=== PATIENT | female | born 1950 | race Caucasian/White ===

== ENCOUNTER 2025-02-16 16:59 | Emergency (ER) | payer MEDICARE, OTHER ==
[~2025-02-16] VITALS: Ht 162.6 cm; Wt 63.5 kg
[2025-02-16 17:43] LABS: BASOPHILS # (AUTO) 0.1 K/uL (0.0-0.2); BASOPHILS % (AUTO) 1.4 % (0.0-2.0); EOSINOPHILS # (AUTO) 0.1 K/uL (0.0-0.7); EOSINOPHILS % (AUTO) 1.4 % (0.0-6.0); HEMATOCRIT 34 % (33-45); HEMOGLOBIN 11.3 g/dL (11.5-14.8); LYMPHOCYTES # (AUTO) 1.7 K/uL (0.8-4.8); LYMPHOCYTES % (AUTO) 21.7 % (20.0-44.0); MEAN CORPUSCULAR HEMOGLOBIN 29 PG (26.0-33.0); MEAN CORPUSCULAR HGB CONC 33 g/dl (31.0-36.0); MEAN CORPUSCULAR VOLUME 88 fL (82-100); MONOCYTES # (AUTO) 0.9 K/uL (0.1-1.30); MONOCYTES % (AUTO) 11.1 % (2.0-12.0); NEUTROPHILS # (AUTO) 5.2 K/uL (1.8-8.9); NEUTROPHILS % (AUTO) 64.4 % (43.0-81.0); PLATELET COUNT (AUTO) 401 K/uL (150-450); RED BLOOD CELL COUNT(AUTO) 3.88 MIL/uL (4.0-5.2); RED CELL DISTRIBUTION WIDTH 13.4 % (11.5-15.0)
[2025-02-16 17:48] LABS: CALCIUM, SERUM 9.1 mg/dL (8.5-10.1); CARBON DIOXIDE 23 mmol/L (21-32); CHLORIDE 108 mmol/L (98-107); CREATININE 1.8 mg/dL (0.6-1.3); GLUCOSE 104 mg/dL (74-106); POTASSIUM 3.8 mmol/L (3.5-5.1); SODIUM SERUM 141 mmol/L (136-145); UREA NITROGEN, BLOOD 26 mg/dL (7-18)
[2025-02-16 17:55] LABS: ALANINE AMINOTRANSFERASE 7 U/L (12-78); ALBUMIN 3.5 g/dL (3.4-5.0); ALKALINE PHOSPHATASE 81 U/L (46-116); ASPARTATE AMINOTRANSFERASE 15 U/L (15-37); BILIRUBIN,DIRECT 0.1 mg/dL (0.0-0.2); BILIRUBIN,TOTAL 0.3 mg/dL (0.2-1.0); LIPASE 54 U/L (16-77); TOTAL PROTEIN, SERUM 7.9 g/dL (6.4-8.2)
[2025-02-16 18:06] LABS: APPEARANCE,URINE CLEAR (CLEAR); BILIRUBIN,URINE NEGATIVE (NEGATIVE); BLOOD, URINE NEGATIVE Ery/uL (NEGATIVE); COLOR,URINE YELLOW (YELLOW); KETONES,URINE NEGATIVE (NEGATIVE); LEUKOCYTE ESTERASE ,URINE NEGATIVE (NEGATIVE); NITRITE, URINE NEGATIVE (NEGATIVE); PROTEIN,URINE 1+ mg/dl (NEGATIVE); UGLUCOSE NEGATIVE (NEGATIVE); UROBILINOGEN,URINE 0.2 EU/dL (0.2)
[2025-02-16 18:11] LABS: ADD URINE CULTURE NO; BACTERIA,URINE Few /HPF (None Seen); SQUAMOUS EPITHELIAL CELL,UR Few /HPF (None Seen)
[2025-02-16] MEDS ORDERED: ONDANSETRON HCL/PF 4 MG/2 ML VIAL ONE (18:15)
[2025-02-16] MEDS ORDERED: MORPHINE SULFATE INJ 2 MG/ML DISP.SYRIN ONE (18:16)
[2025-02-16] MEDS: IV NS 0.9% 1,000 ML BAG IV ONE (18:20)
[2025-02-16] MEDS: ONDANSETRON HCL/PF 4 MG/2 ML VIAL IVP ONE (18:22)
[2025-02-16] MEDS: MORPHINE SULFATE INJ 2 MG/ML DISP.SYRIN IV ONE (18:22)
[2025-02-16] MEDS ORDERED: ASPI-1420 PO (19:20)
[2025-02-16] MEDS ORDERED: HYDR-4077 PO (19:20)
[2025-02-16] MEDS ORDERED: MELA5TAB PO (19:20)
[2025-02-16] MEDS ORDERED: NA P133E RC (19:20)
[2025-02-16] MEDS ORDERED: BISA10SU11 RC (19:20)
[2025-02-16] MEDS ORDERED: ATOR40TA PO (19:20)
[2025-02-16] MEDS ORDERED: FAMO20TA29 PO (19:20)
[2025-02-16] MEDS ORDERED: NIFE90TA61 PO (19:20)
[2025-02-16] MEDS ORDERED: ACET325T53 PO (19:20)
[2025-02-16] MEDS ORDERED: MAGN400O6 PO (19:20)
[2025-02-16] MEDS ORDERED: ONDA-97 PO (19:20)
[2025-02-16] MEDS ORDERED: ESCI5TAB PO (19:20)
[2025-02-16] MEDS ORDERED: CILO100T PO (19:20)
[2025-02-16] MEDS ORDERED: DOCU100C36 PO (19:20)
[2025-02-16] MEDS ORDERED: MELO-105 PO (19:20)
[2025-02-16 20:30] VITALS: TEMP 98.4; O2SAT 96
[2025-02-16] MEDS ORDERED: hydrALAZINE HCL 50 MG TABLET ONE (20:40)
[2025-02-16 20:42] VITALS: BP 193/79
[2025-02-16] MEDS: hydrALAZINE HCL 25 MG TABLET PO ONE (20:42)
== END 2025-02-16 20:32 | disposition home or self-care (01) ==
LOC: ER 17:10
DX: I10 Essential (primary) hypertension (principal); R10.30 Lower abdominal pain, unspecified; I25.10 Atherosclerotic heart disease of native coronary artery without angina pectoris; Z79.02 Long term (current) use of antithrombotics/antiplatelets; Z79.1 Long term (current) use of non-steroidal anti-inflammatories (NSAID); Z79.82 Long term (current) use of aspirin; Z79.899 Other long term (current) drug therapy; Z86.73 Personal history of transient ischemic attack (TIA), and cerebral infarction without residual deficits
CPT/HCPCS: 99285; 74176; 96360; 71045; 93005; 85025; 80048; 83690; 80076; 81001; 36415; J7030; J2270; J2405

== ENCOUNTER 2025-02-18 20:47 | Emergency (ER) | payer MEDICARE, OTHER ==
[~2025-02-18] VITALS: Ht 154.9 cm; Wt 48.5 kg
[~2025-02-18 20:47] MED LIST: ACET325T53 PO; ASPI-1420 PO; ATOR40TA PO; BISA10SU11 RC; CILO100T PO; DOCU100C36 PO; ESCI5TAB PO; FAMO20TA29 PO; HYDR-4077 PO; MAGN400O6 PO; MELA5TAB PO; MELO-105 PO; NA P133E RC; NIFE90TA61 PO; ONDA-97 PO
[2025-02-18 21:49] LABS: APPEARANCE,URINE CLEAR (CLEAR); BILIRUBIN,URINE NEGATIVE (NEGATIVE); BLOOD, URINE NEGATIVE Ery/uL (NEGATIVE); COLOR,URINE YELLOW (YELLOW); KETONES,URINE NEGATIVE (NEGATIVE); LEUKOCYTE ESTERASE ,URINE NEGATIVE (NEGATIVE); NITRITE, URINE NEGATIVE (NEGATIVE); PROTEIN,URINE NEGATIVE (NEGATIVE); UGLUCOSE NEGATIVE (NEGATIVE)
[2025-02-18 22:12] LABS: ADD URINE CULTURE NO; BACTERIA,URINE Few /HPF (None Seen); RBC,URINE 0-2 /HPF (0-2); SQUAMOUS EPITHELIAL CELL,UR Few /HPF (None Seen); WBC,URINE 0-2 /HPF (0-3)
[2025-02-18 23:53] VITALS: BP 132/59; TEMP 98; O2SAT 93
== END 2025-02-18 23:54 ==
LOC: ER 20:53
DX: B34.9 Viral infection, unspecified (principal); I10 Essential (primary) hypertension; Z79.02 Long term (current) use of antithrombotics/antiplatelets; Z79.1 Long term (current) use of non-steroidal anti-inflammatories (NSAID); Z79.82 Long term (current) use of aspirin; Z79.899 Other long term (current) drug therapy; Z86.73 Personal history of transient ischemic attack (TIA), and cerebral infarction without residual deficits; Z20.822 Contact with and (suspected) exposure to COVID-19
CPT/HCPCS: 71045-TC; 81001; 87086-TC